=== PATIENT | male | born 1995 | race Caucasian/White ===

== ENCOUNTER 2017-07-13 15:13 | Emergency (ER) | payer BC ==
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
[2017-07-13 15:25] VITALS: TEMP 98.6; BMI 23.2
[2017-07-13] MEDS ORDERED: morphine SULFATE 4 MG/ML VIAL IVPUSH ONE (15:26)
[2017-07-13] MEDS ORDERED: morphine SULFATE 4 MG/ML VIAL ONE (15:37)
[2017-07-13] MEDS ORDERED: LORazepam 2 MG/ML SDV VIAL ONE (15:55)
[2017-07-13 16:06] LABS: BASO % 0.3 % (0-2.0); EOS % 2.8 % (0-4.5); HEMATOCRIT 47.9 % (35.4-49); HEMOGLOBIN 15.7 GM/dL (11.7-16.9); LYMPH % 20.2 % (8-40); MCH 28.9 pg (25.7-33.7); MCHC 32.8 g/dl (32.0-35.9); MEAN CELL VOLUME 88.1 fl (80-96); MEAN PLT VOLUME 8.9 fl (7.5-11.1); NEUT % 66.7 % (42.8-82.8); PLATELET COUNT 272 K/MM3 (134-434); RBC 5.43 M/mm3 (4.00-5.60); RDW 14.9 % (11.9-15.9); WHITE BLOOD COUNT 7.6 K/mm3 (4.0-10.0)
[2017-07-13 16:20] LABS: INR 1.1 (0.82-1.09); PROTHROMBIN TIME (PATIENT) 12.4 SEC (9.7-13.0)
[2017-07-13 16:23] LABS: ACTIVATED PTT 33.8 SECONDS (26.9-34.4)
[2017-07-13 16:32] LABS: ALBUMIN 4.4 g/dl (3.4-5.0); ALK PHOS 67 U/L (45-117); ANION GAP 8 (8-16); BILIRUBIN,TOTAL 1.1 mg/dL (0.2-1.0); BLOOD UREA NITROGEN 16 mg/dL (7-18); CALCIUM 9.5 mg/dL (8.5-10.1); CHLORIDE 103 mmol/L (98-107); CO2 27 mmol/L (21-32); CREATININE 1.2 mg/dL (0.7-1.3); GLUCOSE,RANDOM 88 mg/dL (74-106); POTASSIUM 4.4 mmol/L (3.5-5.1); SGOT/AST 23 U/L (15-37); SGPT/ALT 30 U/L (12-78); SODIUM 138 mmol/L (136-145); TOT PROT 8.6 g/dl (6.4-8.2)
[2017-07-13] MEDS ORDERED: SODIUM CHLORIDE 1,000 ML IV STA (16:39)
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
[2017-07-13 17:31] LABS: URINE APPEARANCE CLEAR; URINE BILIRUBIN NEGATIVE (<2.0 mg/dL); URINE BLOOD NEGATIVE (NEGATIVE); URINE COLOR YELLOW; URINE GLUCOSE (UA) NEGATIVE (NEGATIVE); URINE KETONE NEGATIVE (NEGATIVE); URINE LEUK ESTERASE NEGATIVE (NEGATIVE); URINE NITRITE NEGATIVE (NEGATIVE); URINE PROTEIN NEGATIVE (NEGATIVE); URINE UROBILINOGEN NEGATIVE mg/dL (0.2-1.0)
[2017-07-13 17:53] LABS: COCAINE, UR NEGATIVE ng/ml (CUTOFF=300); METHADONE, UR NEGATIVE ng/ml (CUTOFF=300); OPIATES, URI POSITIVE ng/ml (CUTOFF=300); PHENCYCLIDINE,URINE NEGATIVE ng/ml (CUTOFF=25); URINE AMPHETAMINES NEGATIVE ng/ml (CUTOFF=500); URINE BARBITURATES NEGATIVE ng/ml (CUTOFF=200); URINE BENZODIAZEPINES NEGATIVE ng/ml (CUTOFF=200)
[2017-07-13 17:55] VITALS: BP 147/77; PULSE 78
--- NOTE | 2017-07-13 17:57 | EKG ---
Test Reason : Blood Pressure : / mmHG Vent. Rate : 076 BPM Atrial Rate : 076 BPM P-R Int : 134 ms QRS Dur : 080 ms QT Int : 370 ms P-R-T Axes : 048 034 035 degrees QTc Int : 416 ms NORMAL SINUS RHYTHM EARLY REPOLARIZATION NO PREVIOUS ECGS AVAILABLE Confirmed by MD VERONICA, WENDY ([id number]) on 07/13/2017 5:57:09 PM Referred By: Confirmed By:WENDY MARTIN MD
== END 2017-07-13 19:10 | disposition home or self-care (01) ==
LOC: JER 15:13
PROC: 3E0337Z Introduction of Electrolytic and Water Balance Substance into Peripheral Vein, Percutaneous Approach (ICD-10-PCS; principal; 2017-07-13)
PROC: 3E033NZ Introduction of Analgesics, Hypnotics, Sedatives into Peripheral Vein, Percutaneous Approach (ICD-10-PCS; 2017-07-13)
DX: R07.89 Other chest pain (principal)
CPT/HCPCS: 36415; 71045-TC-FY; 80053; 80307; 81003; 82550; 82553; 84484; 85025; 85610; 85730; 93005; 93010; 99284-25; J7030

== ENCOUNTER 2017-08-17 05:10 | Day surgery (SDC) | payer BC ==
[2017-08-13 16:42] VITALS: BMI 22.8
[2017-08-13 18:25] LABS: BASO % 0.4 % (0-2.0); HEMATOCRIT 43.4 % (35.4-49); HEMOGLOBIN 14.3 GM/dL (11.7-16.9); LYMPH % 37.3 % (8-40); MCH 29.1 pg (25.7-33.7); MCHC 32.9 g/dl (32.0-35.9); MEAN CELL VOLUME 88.5 fl (80-96); MEAN PLT VOLUME 9.2 fl (7.5-11.1); NEUT % 44.3 % (42.8-82.8); PLATELET COUNT 224 K/MM3 (134-434); RBC 4.91 M/mm3 (4.00-5.60); RDW 14.2 % (11.9-15.9); WHITE BLOOD COUNT 5.7 K/mm3 (4.0-10.0)
[2017-08-13 18:34] LABS: URINE APPEARANCE SLCLOUDY; URINE BILIRUBIN NEGATIVE (<2.0 mg/dL); URINE COLOR AMBER; URINE GLUCOSE (UA) NEGATIVE (NEGATIVE); URINE KETONE NEGATIVE (NEGATIVE); URINE LEUK ESTERASE NEGATIVE (NEGATIVE); URINE NITRITE NEGATIVE (NEGATIVE); URINE PROTEIN NEGATIVE (NEGATIVE); URINE UROBILINOGEN NEGATIVE mg/dL (0.2-1.0)
[2017-08-13 18:38] LABS: INR 1.11 (0.82-1.09); PROTHROMBIN TIME (PATIENT) 12.5 SEC (9.7-13.0)
[2017-08-13 18:40] LABS: ACTIVATED PTT 32.1 SECONDS (25.2-36.5)
[2017-08-13 18:43] LABS: ALBUMIN 4.5 g/dl (3.4-5.0); ANION GAP 7 (8-16); BILIRUBIN,TOTAL 1.2 mg/dL (0.2-1.0); BLOOD UREA NITROGEN 14 mg/dL (7-18); CHLORIDE 105 mmol/L (98-107); CO2 29 mmol/L (21-32); CREATININE 1.2 mg/dL (0.7-1.3); GLUCOSE,RANDOM 72 mg/dL (74-106); POTASSIUM 4.2 mmol/L (3.5-5.1); SGOT/AST 19 U/L (15-37); SGPT/ALT 29 U/L (12-78); SODIUM 141 mmol/L (136-145)
[2017-08-13 18:44] LABS: ALK PHOS 64 U/L (45-117); TOT PROT 8.3 g/dl (6.4-8.2)
--- NOTE | 2017-08-17 10:19 | HP ---
Satellite [facility] - Chief Complaint Chief Complaint: left wrist fx - Past Medical History Allergies/Adverse Reactions: Allergies Allergy/AdvReac Type Severity Reaction Status Date / Time No Known Allergies Allergy Verified 08/13/17 16:38 - Current Medications Current Medications: Home Medications Medication Instructions Recorded Hydrocodone/Acetaminophen [[place] 1 each PO Q6H PRN #20 tablet MDD 4 08/17/17 5-325 Tablet] Satellite Physical Exam - Physical Examination General Appearance: Well Nourished, Well Developed, Alert & Oriented x3 ENT: Clear Lung: Normal air movement Heart: Regular rate & rhythm Extremities: Other (left wrist- long arm cast in place, nvi CT and xrays show scaphoid fx) Neurological: Intact, Alert, Oriented Satellite Impression/Plan - Impression/Plan Impression: left scaphoid fx Operative Procedure: left scaphoid orif Date to be Performed: 08/17/17
[2017-08-17] MEDS ORDERED: fentaNYL CITRATE 250 MCG/5 ML VIAL ONE (16:25)
[2017-08-17] MEDS ORDERED: PROPOFOL 20 ML ONE ×2 (16:25→16:45)
[2017-08-17] MEDS ORDERED: MIDAZOLAM HCL 2 MG/2 ML SINGLE DOSE VIAL ONE (16:26)
[2017-08-17] MEDS ORDERED: LIDOCAINE HCL/PF 2% SDV 5ML VIAL ONE (16:27)
[2017-08-17] MEDS ORDERED: SUCCINYLCHOLINE CHLORIDE 200 MG/10 ML VIAL ONE (16:27)
[2017-08-17] MEDS ORDERED: DEXAMETHASONE SOD PHOSPHATE 4 MG/1 ML VIAL ONE (16:28)
[2017-08-17] MEDS ORDERED: ceFAZolin SODIUM 1 GM VIAL ONE (16:46)
[2017-08-17] MEDS ORDERED: ceFAZolin SODIUM 1 GM VIAL IVPB ONE (16:46)
[2017-08-17] MEDS ORDERED: KETOROLAC TROMETHAMINE 30 MG/1 ML VIAL ONE (17:00)
--- NOTE | 2017-08-17 17:36 | OP ---
Operative Note - Note: Operative Date: 08/17/17 ([facility]) Pre-Operative Diagnosis: left scaphoid fx Operation: left scaphoid orif Post-Operative Diagnosis: Same as Pre-op Surgeon: Trevor Rosado [facility] Manager: Gabe Meraz Anesthesiologist/CELL TOWER CLIMBER: Vick Amador Anesthesia: General, Local Estimated Blood Loss (mls): 0 (tourniquet) Operative Report Dictated: Yes
[2017-08-17] MEDS ORDERED: MEPERIDINE HCL CARPU-JECT 25 MG/1 ML DISP.SYRIN IVPUSH ONE (17:46)
[2017-08-17] MEDS ORDERED: MEPERIDINE HCL CARPU-JECT 25 MG/1 ML DISP.SYRIN ONE (17:46)
[2017-08-17] MEDS ORDERED: oxyCODONE HCL 5 MG TABLET PO PRN (17:57)
[2017-08-17] MEDS ORDERED: ONDANSETRON 4 MG/2 ML VIAL IVPUSH PRN (17:57)
[2017-08-17] MEDS ORDERED: LACTATED RINGERS SOLUTION 1,000 ML IV SCH (18:00)
[2017-08-17 18:27] VITALS: TEMP 98.6
[2017-08-17 19:39] VITALS: BP 146/80; PULSE 77
--- NOTE | 2017-08-19 00:05 | OP ---
DATE OF OPERATION: 08/17/2017 PREOPERATIVE DIAGNOSIS: Subacute left scaphoid fracture (6 weeks). POSTOPERATIVE DIAGNOSIS: Subacute left scaphoid fracture (6 weeks). PROCEDURE: Open reduction internal fixation of left scaphoid. SURGEON: Dwight Jules MD RESEARCH AND DEVELOPMENT TECHNICIAN: ADAN Carter ANESTHESIOLOGIST: Vick Amador MD ANESTHESIA: LMA with local injection of 10 mL of 0.5% Marcaine and 1% lidocaine mixed. DRAINS: None. COMPLICATIONS: None. SPECIMENS: None. FLUID REPLACEMENT: 500 mL. 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 The scaphoid fracture occurred approximately 6 weeks ago. The scaphoid is displaced and volarly angulated. After understanding the potential risks, complications, alternatives, benefits of surgery versus nonsurgical treatment, he and his mother elected to undergo this procedure. Specifically, they understand that still there is a chance the scaphoid will not heal, may need to be excised in pieces, or in its entirety. He may eventually develop first arthritis and then may require surgery including a proximal row carpectomy and/or a wrist fusion. He may develop chronic pain and other problems associated with a scaphoid nonunion. They understand that this surgery may not work. DESCRIPTION OF PROCEDURE: The patient was brought to the operating room, peripheral IV placed. IV sedation given. LMA anesthesia was induced. The left upper extremity was prepped and draped in the sterile fashion. We injected and the left upper extremity was then elevated, exsanguinated with an Esmarch bandage, and tourniquet inflated to 250 mmHg. The scaphoid tubercle was felt on the volar aspect of the wrist. The wrist was put into slight ulnar deviation and extension to make it more prominent. I made an incision over the scaphoid tubercle and dissected down to it. I cleared the soft tissue off of it and cauterized it for hemostasis. I then used the mini C-arm and a guidewire from the Acumed Scaphoid Screw Set and put it into the scaphoid tubercle. I did an x-ray and confirmed that it was the scaphoid and passed it further in 45 degrees of angulation in the anterior-posterior plane and 45 degrees towards the ulna in the ulnar radial plane. I was able to pass one wire. It looked quite good. However, it was about 2 mm too radial, so I used this as a guide and used a 2nd guidewire making it parallel to the first about 2 mm more ulnar. I was able to achieve an excellent center-center position perpendicular to the fracture site. Multiple x-rays were taken in the AP, lateral, and many oblique planes documenting excellent position in the center-center position of the scaphoid. I liked the ankle and its position. I then measured and in the standard hand over-drilling of the proximal cortex, I put down a 24 mm, threaded, tapered, headless Acumed screw and I was able to achieve excellent compression across the fracture site. Overall the length was excellent and confirmed on C-arm fluoroscopy the position of the screw as well as the compression of the scaphoid. It all came together quite nicely. The top portion was not prominent. Final x-rays were taken. The guidewire was removed. The area was copiously irrigated and washed out. Closure was done with 4-0 undyed Vicryl in the deep dermal layer and a running subcuticular 4-0 Biosyn stitch. The area was then covered with Steri-Strips, 4 x 4 gauze, Webril, fluffs between the fingers, and a short-arm thumb spica fiberglass splint was applied, wrapped with Alexandra and Coban. Total tourniquet time was approximately 50 minutes. There were no complications during the case. The patient tolerated the procedure well and was brought to the ambulatory recovery room in stable condition. DWIGHT JULES M.D. [id number]
== END 2017-08-17 19:32 | disposition home or self-care (01) ==
LOC: JASU-SURG 05:10
PROVIDERS: ATTEND Orthopaedic Surgery
PROC: 0PSN04Z Reposition Left Carpal with Internal Fixation Device, Open Approach (ICD-10-PCS; principal; 2017-08-17 15:30)
DX: S62.002K Unspecified fracture of navicular [scaphoid] bone of left wrist, subsequent encounter for fracture with nonunion (principal); X58.XXXD Exposure to other specified factors, subsequent encounter
CPT/HCPCS: 25628; C1713; 36415; 76000-TC-FY; 80053; 81003; 85025; 85610; 85730; 94760

== ENCOUNTER 2018-12-17 22:50 | Emergency (ER) | payer OTHER, BC ==
[2018-12-17 23:00] VITALS: BP 138/74; PULSE 80; TEMP 99; BMI 25.2
--- NOTE | 2018-12-18 00:01 | PDOC ---
History of Present Illness - General Chief Complaint: Cold Symptoms Stated Complaint: PAIN History Source: Patient - History of Present Illness Initial Comments: 12/17/18 23:56 23 yo M no significant PMH presenting with body aches. Pt states these symptoms began 2 days ago. on the first day he states that he also had chills. pt reports subjective fevers of 101.5. pt endorses lightheadedness. Pt denies throat pain, swelling, difficulty swallowing. denies neck pain, headache, nausea , vomiting, diarrhea. denies new bug bites. Past History - Past Medical History Allergies/Adverse Reactions: Allergies Allergy/AdvReac Type Severity Reaction Status Date / Time No Known Allergies Allergy Verified 12/17/18 22:55 Home Medications: Ambulatory Orders Hydrocodone/Acetaminophen [[place] 5-325 Tablet] 1 each PO Q6H PRN #20 tablet MDD 4 08/17/17 Anemia: No Asthma: No Cancer: No Cardiac Disorders: No CVA: No COPD: No CHF: No Dementia: No Diabetes: No GI Disorders: No Disorders: No HTN: No Hypercholesterolemia: No Liver Disease: No Seizures: No Thyroid Disease: No - Immunization History Immunization Up to Date: Yes (07/13/17) - Psycho Social/Smoking Cessation Hx Smoking History: Never smoked Have you smoked in the past 12 months: No Information on smoking cessation initiated: No Hx Alcohol Use: No Drug/Substance Use Hx: No Substance Use Type: None Hx Substance Use Treatment: No Review of Systems - Review of Systems Constitutional: Yes: Chills, Fever, Weakness HEENTM: No: Throat Pain, Throat Swelling, Difficulty Swallowing, Mouth Swelling Respiratory: No: Cough, Shortness of Breath Cardiac (ROS): Yes: Lightheadedness. No: Chest Pain ABD/GI: No: Diarrhea, Nausea, Poor Appetite, Vomiting, Abdominal cramping : No: Burning, Dysuria, Discharge, Hematuria Musculoskeletal: No: Neck Pain Neurological: No: Headache, Numbness *Physical Exam - Vital Signs Last Vital Signs Temp Pulse Resp BP Pulse Ox 99.0 F 80 20 138/74 98 12/17/18 22:55 12/17/18 22:55 12/17/18 22:55 12/17/18 22:55 12/17/18 22:55 Medical Decision Making - Medical Decision Making 12/18/18 00:00 23 yo M presenting with body aches likely 2/2 flu -rapid flu -rapid strep 12/18/18 01:02 -rapid strep and flu neg will dc home Discharge - Discharge Information Problems reviewed: Yes Clinical Impression/Diagnosis: Upper respiratory infection Qualifiers: URI type: unspecified viral URI Qualified Code(s): J06.9 - Acute upper respiratory infection, unspecified Condition: Good Disposition: HOME - Admission No - Follow up/Referral Referrals: Chris Peña MD [Primary Care Provider] - - Patient Discharge Instructions Patient Printed Discharge Instructions: DI for Viral Upper Respiratory Infection -- Adult Additional Instructions: You presented to the hospital with body aches and fevers. We did a strep test and a flu test which resulted negative. You may take motrin every 8 hours for your symptoms. Please follow up with your primary medical physician within 1 week regarding your symptoms. If you have any new, worsening, or concerning symptoms please return to the ED. - Post Discharge Activity
--- NOTE | 2018-12-18 00:17 | PDOC ---
Documentation entered by Jaz Gonzalez SCRIBE, acting as scribe for Burke Pike MD. Burke Pike MD: This documentation has been prepared by the ebenezeribeCarlos Lincy, SCRIBE, under my direction and personally reviewed by me in its entirety. I confirm that the documentation accurately reflects all work, treatment, procedures, and medical decision making performed by me. Attending Attestation - Resident Resident Name: Carrie Hammonds - ED Attending Attestation I have performed the following: I have examined & evaluated the patient, The case was reviewed & discussed with the resident, I agree w/resident's findings & plan, Exceptions are as noted - HPI HPI: 12/18/18 00:17 23-year-old male presents with 2 days of myalgias, generalized weakness and sore throat. Patient denies headache/nausea/vomiting/diarrhea/cough/dysuria/ hematuria - Physicial Exam PE: 12/18/18 00:13 Patient is awake and alert, well appearing, in no distress Normocephalic atraumatic PERRLA, EOMI, no photophobia Mucous membranes are moist, oropharynx is clear without exudate, uvula is midline and is nonedematous Neck is supple without significant anterior cervical lymphadenopathy Lungs are clear to auscultation RRR Abdomen soft nontender No evidence of particular rash - Medical Decision Making 12/18/18 Patient is well-appearing 23-year-old male who presents with 48 hours of myalgias, subjective fevers and sore throat. Patient's well-appearing, afebrile , without evidence of meningismus. Will test for influenza as well as strep throat. Will obtain UA to evaluate for proteinuria. Likely discharge
[2018-12-18 02:00] LABS: EPI CELLS 0.5 /HPF (0-5/HPF); HYALINE CASTS 3 /lpf (0-8); PH,URINE 6.5 (5.0-8.0); URINE APPEARANCE CLOUDY; URINE BACTERIA 1962.2 /hpf (NEGATIVE); URINE BILIRUBIN NEGATIVE (NEGATIVE); URINE COLOR DK YELLOW; URINE GLUCOSE (UA) NEGATIVE (NEGATIVE); URINE KETONE TRACE (NEGATIVE); URINE LEUK ESTERASE 2+ (NEGATIVE); URINE NITRITE POSITIVE (NEGATIVE); URINE PROTEIN 1+ (NEGATIVE); URINE RBC 4 /hpf (0-4); URINE WBC 228 /hpf (0-5)
== END 2018-12-18 01:49 | disposition home or self-care (01) ==
LOC: JER 22:50
DX: J06.9 Acute upper respiratory infection, unspecified (principal); B97.89 Other viral agents as the cause of diseases classified elsewhere
CPT/HCPCS: 81003; 87070; 87804; 87880; 99282-25

== ENCOUNTER 2019-08-02 14:18 | Emergency (ER) | payer BC, OTHER ==
[2019-08-02 14:40] VITALS: BP 134/68; PULSE 82; TEMP 98.5; BMI 23.4
--- NOTE | 2019-08-02 14:40 | PDOC ---
Rapid Medical Evaluation Chief Complaint: Injury Time Seen by Provider: 08/02/19 14:37 Medical Evaluation: Allergies Allergy/AdvReac Type Severity Reaction Status Date / Time No Known Allergies Allergy Verified 12/17/18 22:55 08/02/19 14:38 CC: twisted rt ankle last and continues with pain Exam: tenderness to medial aspect of mid foot, mild edema to malleolus Plan: xray of the foot 08/02/19 14:40 Discharge Disposition - Diagnosis Injury - Referrals - Patient Instructions - Post Discharge Activity
--- NOTE | 2019-08-02 15:46 | PDOC ---
History of Present Illness - General Chief Complaint: Injury Stated Complaint: INJURY Time Seen by Provider: 08/02/19 14:37 History Source: Patient Exam Limitations: No Limitations Past History - Travel History Traveled outside of the country in the last 30 days: No Close contact w/someone who was outside of country & ill: No - Medical History Allergies/Adverse Reactions: Allergies Allergy/AdvReac Type Severity Reaction Status Date / Time No Known Allergies Allergy Verified 08/02/19 15:46 Home Medications: Ambulatory Orders Hydrocodone/Acetaminophen [[place] 5-325 Tablet] 1 each PO Q6H PRN #20 tablet MDD 4 08/17/17 Ibuprofen 600 mg PO Q6H #30 tablet 08/02/19 Anemia: No Asthma: No Cancer: No Cardiac Disorders: No CVA: No COPD: No CHF: No Dementia: No Diabetes: No GI Disorders: No Disorders: No HTN: No Hypercholesterolemia: No Liver Disease: No Seizures: No Thyroid Disease: No - Immunization History Td Vaccination: Yes TDAP Vaccination: Yes Immunization Up to Date: Yes (07/13/17) - Psycho-Social/Smoking History Smoking History: Never smoked Have you smoked in the past 12 months: No Information on smoking cessation initiated: No - Substance Abuse Hx (Audit-C & DAST Scrn) How often the patient has a drink containing alcohol: 2-4 times / month Number of drinks the patient has on a typical day: 1 or 2 How often the patient has six or more drinks on one occasion: Monthly Score: In Men: 4 or > Positive; In Women: 3 or > Positive: 4 Screen Result (Pos requires Nsg. Audit-10AR): Positive In the last yr the pt used illegal drug/Rx for NonMed reason: No Score: Yes response is considered Positive: 0 Screen Result (Positive result requires Nsg. DAST-10): Negative Review of Systems - Review of Systems Able to Perform ROS?: Yes Comments:: 08/02/19 15:44 CONSTITUTIONAL: Absent: fever, chills, diaphoresis, generalized weakness, malaise, loss of appetite MUSCULOSKELETAL: Present: Right ankle pain absent: myalgia, arthralgia, joint swelling SKIN: Absent: rash, itching, pallor NEUROLOGIC: Absent: headache, focal weakness or paresthesias, dizziness, unsteady gait, seizure, mental status changes, bladder or bowel incontinence PSYCHIATRIC: Absent: anxiety, depression, suicidal or homicidal ideation, hallucinations. Is the patient limited Swedish proficient: No *Physical Exam - Vital Signs Last Vital Signs Temp Pulse Resp BP Pulse Ox 98.5 F 82 20 134/68 98 08/02/19 14:38 08/02/19 14:38 08/02/19 14:38 08/02/19 14:38 08/02/19 14:38 - Physical Exam 08/02/19 19:10 GENERAL: The patient is awake, alert, and fully oriented, in no acute distress. HEAD: Normal with no signs of trauma. EYES: Pupils equal, round and reactive to light, extraocular movements intact, sclera anicteric, conjunctiva clear. EXTREMITIES: Tenderness palpation of the medial aspect of the right ankle along the malleolus with mild edema noted. Full range of motion noted of the right ankle. Skin color and temperature are normal. 2+ distal pulses. Normal range of motion, no edema at all other joints. NEUROLOGICAL: Normal speech, normal gait. PSYCH: Normal mood, normal affect. SKIN: Warm, Dry, normal turgor, no rashes or lesions noted. Medical Decision Making - Medical Decision Making 08/02/19 19:11 The patient is a 24-year-old male no past medical history, presents to the ER today for right ankle pain for 1 week. He states he was at work when he was getting out of his truck he rolled his right ankle. He states that his been treating at home with ice and elevation however he is still in pain so he came to the ER for evaluation. Denies weakness, numbness and tingling to the affected extremity. A/P: Right Ankle Pain On exam there is tenderness palpation of the medial aspect of the right ankle. X-ray is unremarkable for fractures of the foot or ankle. We will treat as an ankle fracture and refer to orthopedics for further management. Symptomatic relief given. I discussed the physical exam findings, ancillary test results and final diagnoses with the patient. I answered all of the patient's questions. The patient was satisfied with the care received and felt comfortable with the discharge plan and treatment plan. The Patient agrees to follow up with the primary care physician/specialist within 24-72 hours. Return precautions were given. Discharge - Discharge Information Problems reviewed: Yes Clinical Impression/Diagnosis: Ankle pain, right Qualifiers: Chronicity: acute Qualified Code(s): M25.571 - Pain in right ankle and joints of right foot Condition: Stable Disposition: HOME - Admission No - Additional Discharge Information Prescriptions: Ibuprofen 600 mg PO Q6H #30 tablet - Follow up/Referral Referrals: Bhavesh Peña MD [Primary Care Provider] - Param Hammond MD [Staff Physician] - - Patient Discharge Instructions Additional Instructions: You sprained your ankle. Your x-ray was negative for broken bones. Please keep your ankle elevated while at rest above the level of your heart to reduce swelling. You may take Motrin 600 mg every 6 hours with food to help reduce pain and swelling. Please ice the area for 20 minute intervals at least 5 times a day to help reduce swelling. Please wear the Vikash wrap. Please follow-up with orthopedics in 1-2 days for further management and treatment options. Return to the emergency department if you have worsening pain, or unable to walk, numbness and tingling of the foot, or had any changes in her symptoms. - Post Discharge Activity Work/Back to School Note: Back to Work
== END 2019-08-02 15:47 | disposition home or self-care (01) ==
LOC: JERFT 14:18
DX: M25.571 Pain in right ankle and joints of right foot (principal)
CPT/HCPCS: 73610-TC-RT-FY; 73630-TC-RT-FY; 99283-25